=== PATIENT | male | born 1970 | race Caucasian/White ===

== ENCOUNTER 2022-10-08 07:56 | Inpatient (IN) | payer MEDICAID, OTHER ==
[~2022-10-08] VITALS: Ht 152.4 cm; Wt 102.1 kg
[~2022-10-08 07:56] MED LIST: METF-1274 PO
[2022-10-08 08:05] VITALS: BP 144/89
[2022-10-08] MEDS ORDERED: ACETAMINOPHEN EXTRA STRENGTH 500 MG TAB PO ONE ×2 (08:15→16:25)
[2022-10-08] MEDS ORDERED: KETOROLAC 30 MG/ML VIAL IVP ONE (09:00)
[2022-10-08] MEDS ORDERED: NACL 0.9% 2,000 ML IV ONE (09:00)
[2022-10-08 09:16] LABS: APPEARANCE,URINE SL CLOUDY (CLEAR); BILIRUBIN,URINE NEGATIVE (NEGATIVE); BLOOD, URINE 1+ (NEGATIVE); COLOR,URINE YELLOW (YELLOW); LEUKOCYTE ESTERASE ,URINE NEGATIVE (NEGATIVE); NITRITE, URINE POSITIVE (NEGATIVE); UGLUCOSE 3+ (NEGATIVE)
[2022-10-08] MEDS ORDERED: cefTRIAXone 1,000 MG VIAL ONE (09:19)
[2022-10-08 09:21] LABS: BASOPHILS % (AUTO) 0.3 % (0.0-2.0); EOSINOPHILS % (AUTO) 0.1 % (0.0-4.0); HEMATOCRIT 44.2 % (36-52); HEMOGLOBIN 15.4 g/dL (12.0-18.0); LYMPHOCYTES # (AUTO) 0.6 K/uL (2.0-11.5); LYMPHOCYTES % (AUTO) 7.9 % (20.5-51.1); MEAN CORPUSCULAR HEMOGLOBIN 31 pg (27-31); MEAN CORPUSCULAR HGB CONC 35 g/dL (33-37); MEAN CORPUSCULAR VOLUME 88.4 fL (80-94); MONOCYTES % (AUTO) 12.3 % (1.7-9.3); NEUTROPHILS # (AUTO) 6.5 K/uL (1.8-7.7); NEUTROPHILS % (AUTO) 79.4 % (42.2-75.2); PLATELET COUNT (AUTO) 198 K/uL (140-450); RED CELL DISTRIBUTION WIDTH 12.3 % (11.6-13.7); WHITE BLOOD COUNT (AUTO) 8.2 K/uL (4.8-10.8)
[2022-10-08 11:04] LABS: FINE GRANULAR CASTS,URINE 0-10 /LPF (None Seen)
[2022-10-08 11:47] LABS: ALBUMIN 3.2 g/dL (3.4-5.0); ANION GAP 16.5 (8-16); CARBON DIOXIDE 21.9 mmol/L (21-32); CREATININE 1.3 mg/dL (0.6-1.3); POTASSIUM 4.4 mmol/L (3.5-5.1); TOTAL BILIRUBIN 0.8 mg/dL (0.0-1.0)
[2022-10-08] MEDS ORDERED: METF-951 PO (13:36)
[2022-10-08] MEDS ORDERED: ASPI-1822 PO (13:41)
[2022-10-08] MEDS ORDERED: LOSA100T1 PO (13:41)
[2022-10-08] MEDS ORDERED: BUSP-83 PO (13:41)
[2022-10-08] MEDS ORDERED: INSU100S22 SUBQ (13:41)
[2022-10-08] MEDS ORDERED: FLUO10CA21 PO (13:41)
[2022-10-08] MEDS ORDERED: ATOR20TA PO (13:41)
[2022-10-08] MEDS ORDERED: ACETAMINOPHEN 325 MG TAB PO PRN (18:45)
[2022-10-08] MEDS ORDERED: MORPHINE SULFATE 4 MG/ML SYR IVP PRN (18:45)
[2022-10-08] MEDS ORDERED: ZOLPIDEM 5 MG TAB PO PRN (18:45)
[2022-10-08] MEDS ORDERED: MAG SULF 2000 MG/WATER PREMIX 50 ML IV PRN (18:45)
[2022-10-08] MEDS ORDERED: ONDANSETRON 4 MG/2 ML VIAL IVP PRN (18:45)
[2022-10-08] MEDS ORDERED: KCL 20 MEQ/WATER INJ PREMIX 200 ML IV PRN (18:45)
[2022-10-08] MEDS ORDERED: POTASSIUM CHLORIDE 10 MEQ TABER PO PRN (18:45)
[2022-10-08] MEDS: NACL 0.9% 1,000 ML IV SCH (19:05)
[2022-10-08 20:25] VITALS: BP 148/97
[2022-10-08] MEDS: INSULIN LANTUS 100 UNITS/ML 10 ML VIAL SUBQ SCH (21:00)
[2022-10-08] MEDS: INSULIN LISPRO SLIDING SCALE 100 UNITS/ML VIAL SUBQ PRN (22:18)
[2022-10-09] MEDS: NACL 0.9% 1,000 ML IV SCH ×2 (06:29→12:50)
[2022-10-09] MEDS: BLOOD GLUCOSE MONITORING 1 DEV DEV FS SCH ×4 (06:33→20:35)
[2022-10-09] MEDS: INSULIN LISPRO SLIDING SCALE 100 UNITS/ML VIAL SUBQ PRN ×4 (06:33→20:38)
[2022-10-09 07:47] LABS: HEMATOCRIT 36.6 % (36-52); HEMOGLOBIN 12.7 g/dL (12.0-18.0); MEAN CORPUSCULAR HEMOGLOBIN 31 pg (27-31); MEAN CORPUSCULAR HGB CONC 35 g/dL (33-37); MEAN CORPUSCULAR VOLUME 88.1 fL (80-94); PLATELET COUNT (AUTO) 160 K/uL (140-450); RED BLOOD CELL COUNT(AUTO) 4.15 MIL/uL (4.20-6.10); RED CELL DISTRIBUTION WIDTH 11.9 % (11.6-13.7); WHITE BLOOD COUNT (AUTO) 9.1 K/uL (4.8-10.8)
[2022-10-09 08:00] VITALS: BP 142/77
[2022-10-09 08:12] LABS: ANION GAP 15.4 (8-16); CARBON DIOXIDE 23.7 mmol/L (21-32); POTASSIUM 4.1 mmol/L (3.5-5.1)
[2022-10-09 08:57] LABS: EOSINOPHILS % (MANUAL) 0 % (0-4); LYMPHOCYTES % (MANUAL) 7 % (20-46); MONOCYTES % (MANUAL) 12 % (5-12)
[2022-10-09 08:58] LABS: BASOPHILS % (MANUAL) 0 % (0-2); BLASTS, MANUAL % 0 % (0-0); METAMYELOCYTES % 0 % (0-0); MYELOCYTES % 0 % (0-0); OTHER CELLS,MANUAL % 0 (0-0); PROMYELOCYTES % 0 % (0-0)
[2022-10-09 08:59] LABS: BUFFY COAT SMEAR PREP N
[2022-10-09] MEDS: HYDROcodone/APAP 5/325 MG 1 TAB TAB PO PRN ×2 (10:57→20:41)
[2022-10-09 16:00] VITALS: BP 140/79
[2022-10-09] MEDS: INSULIN LANTUS 100 UNITS/ML 10 ML VIAL SUBQ SCH (21:20)
[2022-10-10] VITALS: BP 118/62
[2022-10-10] MEDS: NACL 0.9% 1,000 ML IV SCH (00:37)
[2022-10-10] MEDS: BLOOD GLUCOSE MONITORING 1 DEV DEV FS SCH ×3 (06:23→16:29)
[2022-10-10] MEDS: INSULIN LISPRO SLIDING SCALE 100 UNITS/ML VIAL SUBQ PRN ×3 (06:24→16:31)
[2022-10-10 07:42] LABS: BASOPHILS % (AUTO) 0.2 % (0.0-2.0); EOSINOPHILS % (AUTO) 0.1 % (0.0-4.0); HEMATOCRIT 35.7 % (36-52); HEMOGLOBIN 12.4 g/dL (12.0-18.0); LYMPHOCYTES # (AUTO) 0.9 K/uL (2.0-11.5); LYMPHOCYTES % (AUTO) 9.7 % (20.5-51.1); MEAN CORPUSCULAR HEMOGLOBIN 31 pg (27-31); MEAN CORPUSCULAR HGB CONC 35 g/dL (33-37); MONOCYTES # (AUTO) 0.9 K/uL (0.8-1.0); MONOCYTES % (AUTO) 10.5 % (1.7-9.3); NEUTROPHILS # (AUTO) 7.1 K/uL (1.8-7.7); NEUTROPHILS % (AUTO) 79.5 % (42.2-75.2); PLATELET COUNT (AUTO) 154 K/uL (140-450); RED BLOOD CELL COUNT(AUTO) 3.97 MIL/uL (4.20-6.10); RED CELL DISTRIBUTION WIDTH 11.9 % (11.6-13.7); WHITE BLOOD COUNT (AUTO) 8.9 K/uL (4.8-10.8)
[2022-10-10 08:00] VITALS: BP 127/82
[2022-10-10 08:52] LABS: ANION GAP 13.8 (8-16); CARBON DIOXIDE 26.1 mmol/L (21-32); CREATININE 0.9 mg/dL (0.6-1.3); POTASSIUM 3.9 mmol/L (3.5-5.1)
[2022-10-10] MEDS: HYDROcodone/APAP 5/325 MG 1 TAB TAB PO PRN (10:01)
[2022-10-10] MEDS ORDERED: CEPH-588 PO (13:27)
[2022-10-10] MEDS ORDERED: LEVO-481 PO (14:02)
== END 2022-10-10 17:38 | disposition home or self-care (01) | DRG 872 ==
LOC: MED 07:56 → EDBEDREQSVC 12:25 → UNDOADMIN 18:45 → MTU 18:45 → OBSVTOIN 10-09 17:16
PROVIDERS: ADMIT Hospitalist; ATTEND Hospitalist
DX: A41.9 Sepsis, unspecified organism (principal); N39.0 Urinary tract infection, site not specified; E87.1 Hypo-osmolality and hyponatremia; Z20.822 Contact with and (suspected) exposure to COVID-19; I10 Essential (primary) hypertension; E78.00 Pure hypercholesterolemia, unspecified; E11.9 Type 2 diabetes mellitus without complications; E78.5 Hyperlipidemia, unspecified; E83.42 Hypomagnesemia; R31.9 Hematuria, unspecified; R16.1 Splenomegaly, not elsewhere classified; Z79.4 Long term (current) use of insulin
CPT/HCPCS: 96365; 96375; 99291; G0378; 36415; 80048; 80053; 81001; 82948; 83605; 83735; 85025; 87040; 87077; 87081; 87086; J0696; J1644; J1815; J1885; J2270; J3475; J7060